=== PATIENT | male | born 1960 | race Caucasian/White ===

== ENCOUNTER 2017-12-15 00:56 | Inpatient (IN) | payer OTHER ==
[~2017-12-15] VITALS: Ht 172.7 cm; Wt 83.9 kg
[~2017-12-15 00:56] MED LIST: ATORVASTATIN CA20 M1 PO; LISINOPRIL-HCT1 EAC1 PO; MULTIVITAMINS1 EAC9 PO
--- NOTE | 2017-12-15 09:00 | Admission Core Measures ---
Acute Coronary Syndrome (CM) ACS Core Measures Acute Coronary Syndrome Diagnosis No Congestive Heart Failure (NEW) CHF Core Measures Congestive Heart Failure Diagnosis No Cerebrovascular Accident CVA Core Measures CVA/TIA Diagnosis No Venous Thromboembolism VTE Core Jairon (View Protocol) VTE Risk Factors Surgery No Mechanical VTE Prophylaxis d/t N/A MechProphylax Ordered No VTE Pharm Prophylaxis d/t NA PharmProphylax ordered Problem List As ranked by this Provider includes Assessment & Plan 1. Unilateral primary osteoarthritis, right hip HOME MEDS Home Med List Atorvastatin Calcium 20 MG TABLET 1 TAB PO DAILY CHOLESTEROL (Reported) Lisinopril/Hydrochlorothiazide (Lisinopril-Hctz 20-25 MG Tab) 20 MG-25 MG TABLET 1 TAB PO DAILY HTN (Reported) Multiple Vitamin (Multivitamins) 1 EACH TABLET 1 TAB PO DAILY SUPPLEMENT ( Reported)
--- NOTE | 2017-12-15 09:17 | Surg Short-stay <48hrs Dis Sum ---
Visit Information Visit Dates Admission Date: 12/15/17 Discharge Date: 12/15/17 Surgical Short Stay DC Summary Admission Diagnosis: Right hip osteoarthritis Final Diagnosis: JESSICA s/p R THR Procedure(s): Right total hip replacement 12/15/17 Summary/Significant Findings: Patient was admitted to the hospital for an elective right total hip replacement. Procedure was tolerated well and patient was transferred to a general surgical floor. Diet was advanced and tolerated. Physical therapy performed evaluation and treatment. At time of hospital discharge, vital signs were stable, neurovascular status was intact and pain was controlled with the use of oral pain medications. Condition at Discharge: Stable Discharge Disposition: home health services Discharge instructions provided to patient/family: Yes Post discharge follow-up plan: [address] Goss
[2017-12-15] MEDS ORDERED: PROTONIX20 M1 PO (09:19)
[2017-12-15] MEDS ORDERED: DILAUDID2 M1 PO (09:19)
[2017-12-15] MEDS ORDERED: INDOMETHACIN25 M1 PO (09:19)
[2017-12-15] MEDS ORDERED: ASPIRIN EC81 M1 PO (09:19)
[2017-12-15] MEDS ORDERED: COLACE100 M1 PO (09:19)
[2017-12-15] MEDS ORDERED: MS CONTIN15 M3 PO (09:19)
[2017-12-15] MEDS ORDERED: MIRALAX17 G1 PO (09:19)
--- NOTE | 2017-12-15 09:22 | Patient Discharge Instructions ---
Discharge Instructions General Discharge Information You were seen/treated for: Primary osteoarthritis, right hip You had these procedures: Right total hip replacement Watch for these problems: Increasing pain despite the use of pain medication Increasing redness, warmth or swelling Drainage of any type from incision Inability to bear weight on operative leg Persistent nausea and vomiting Fever greater than 101.5 degrees No bath, but you may shower: Yes Other wound care: Please keep wound clean and dry. No ointments or lotions of any type on or near incision. Your dressing will be changed by your nurse on the second day after your surgery. Daily dry dressing changes are recommended each day thereafter. Do not soak your wound- no tub baths/swimming. You may shower 48hr after surgery. Special Instructions: Aspirin: You are taking this medication to help prevent blood clot formation. Please take with food to protect your stomach lining. Please take as directed. Constipation: Pain medication can cause constipation. It is recommended that you take Colace and Miralax each day. Discontinue this medication if you develop loose stool or diarrhea. If you wish to continue this medication, it is available over the counter. If you are unable to move your bowels or unable to pass gas and are developing bloating, nausea, or vomiting as a result, please contact your doctor. Diet Continue normal diet: Yes Activity Full Activity/No Limits: No Activity Self Limited: Yes Activity Limited to: Weight bear as tolerated Other activity limits: Use rolling walker as needed Acute Coronary Syndrome Inclusion Criteria At DC or during hospital stay patient has or had the following: ACS DIAGNOSIS No Discharge Core Measures Meds if any: Prescribed or Continued at Discharge Meds if any: NOT Prescribed or Continued at Discharge Congestive Heart Failure Inclusion Criteria At DC or during hospital stay patient has or had the following: CHF DIAGNOSIS No Discharge Core Measures Meds if any: Prescribed or Continued at Discharge Meds if any: NOT Prescribed or Continued at Discharge Cerebrovascular accident Inclusion Criteria At DC or during hospital stay patient has or had the following: CVA/TIA Diagnosis No Discharge Core Measures Meds if any: Prescribed or Continued at Discharge Meds if any: NOT Prescribed or Continued at Discharge Venous thromboembolism Inclusion Criteria VTE Diagnosis No VTE Type NONE VTE Confirmed by (Test) NONE Discharge Core Measures - Per Current guidelines, there needs to be overlap - treatment for the first 5 days of Warfarin therapy. - If discharged on Warfarin prior to 5 days of - overlap therapy, the patient will need to be - assessed for post discharge needs including - *Post discharge parental anticoagulation - *Warfarin and/or parental anticoagulation education - *Follow up date to check INR post discharge At least 5 days overlap therapy as Inpatient No Meds if any: Prescribed or Continued at Discharge Note: Overlap Therapy is Warfarin and Anticoagulant Meds if any: NOT Prescribed or Continued at Discharge
--- NOTE | 2017-12-15 10:32 | PN- Orthopedic ---
See Addendum Subjective Subjective: Patient reports pain is well controlled in PACU. He reports slight numbness along the bottom of his feet. He is tolerating gingerale without nausea or vomiting. He denies voiding adn has not ambulated with PT yet. Objective Vital Signs and I&Os afebrile, VSS Physical Exam: Gen - resting comfortably in pacu in nad Cardiac - S1S2 noted, RRR Lungs - CTAB Abd - soft, nontender Ext - moves all extremities, right hip dressing c/d/i, compartment soft, motor and sensory intact, alps in place, no edema or calf tenderness Current Medications: Current Medications Sig/Scarlett Start time Last Medication Dose Route Stop Time Status Admin Acetaminophen 0 .STK-MED ONE 12/15 706 DC PO Acetaminophen 975 MG ONCE 12/15 0000 NR PO 12/15 2358 Cefazolin Sodium 2,000 MG ONCE 12/15 0000 NR IV 12/15 2358 Oxycodone HCl 0 .STK-MED ONE 12/15 706 DC PO Oxycodone HCl 10 MG ONCE 12/15 0000 NR PO 12/15 2358 Assessment/Plan Assessment/Plan 57 M s/p R THR, awaiting PT eval and postop void PT eval, WBAT Advance to regular diet Cont IVF Cont IV abx - ancef x2 Pain regimen prn Indocin 25 mg tid DVT ppx - alps, teds, asa 81 bid Anticipate d/c home w/ hhs pending voiding, PT clearance Core Measures Venous Thromboembolism VTE Risk Factors Surgery No Mechanical VTE Prophylaxis d/t N/A MechProphylax Ordered No VTE Pharm Prophylaxis d/t NA PharmProphylax ordered
[2017-12-15 11:05] VITALS: BP 120/80
--- NOTE | 2017-12-15 11:49 | RADIOLOGY REPORT ---
EXAMINATION: XR HIP, RIGHT CLINICAL INFORMATION: Status post right hip arthroplasty COMPARISON: None TECHNIQUE: Two views of the right hip. FINDINGS: Recent postoperative changes with air in the joint space and soft tissues. Right total hip arthroplasty. Intact hardware. Periprosthetic osseous structures are intact. IMPRESSION: Recent postoperative changes.
[2017-12-15 13:40] VITALS: BP 80/50
[2017-12-15 14:57] VITALS: BP 102/62
--- NOTE | 2017-12-15 16:18 | Operative Report ---
Operative/Inv Procedure Report Surgery Date: 12/15/17 Name of Procedure: Right total hip replacement Pre-Operative Diagnosis: Primary right hip DJD Post-Operative Diagnosis: Same Estimated Blood Loss: 300 Surgeon/Corrugator Supervisor: Wolfgang CAVANAUGH,Nasir Garcia Anesthesia: block Operative/Procedure Note Note: Description of Procedure: The patient was taken to the operating room and positively identified. After induction of spinal anesthesia and administration of appropriate pre-operative antibiotics, the patient was positioned supine on the operating room table and all bony prominences were well padded. After performing a surgical timeout, the right lower extremity was prepped and draped in the usual sterile fashion. A direct anterior approach was made to the right hip. The incision was carried sharply through superficial soft tissues to the level of the fascia. Meticulous hemostasis was maintained with Bovie electocautery. The fascia over the tensor fascia maria muscle was opened sharply and the interval between the TFL and the sartorius was entered bluntly taking care to stay lateral to the lateral femoral cutaneous nerve. Retractors were placed around the femoral neck and the pericapsular fat was identified. The ascending branches of the lateral femoral circumflex vessels were identified and carefully coagulated. The pericapsular fat and anterior capsule were then resected. A napkin ring osteotomy was performed and the femoral head was removed without difficulty. Attention was then turned to the acetabulum. After appropriate placement of retractors, the acetabulum was exposed. Soft tissue was cleaned from the acetabular margin and notch. Overhanging osteophytes were removed and the teardrop was exposed. The acetabulum was then sequentially reamed to accept a 60 mm Domenica Tritanium hemispherical solid shell. This was impacted into place in the appropriate position and fitted with a 36 mm Trident X3 zero degree polyethylene insert. Attention was then turned to the femur. After performing the appropriate ligament releases, the proximal femur was exposed. It was then sequentially broached to accept a size #4 [place] Accolade 2 stem. This was trialed for leg length and stability. The trial component was removed and the final component was impacted into place. The trunnion was carefully cleaned and fit with a 36 mm, -2.5 Biolox delta ceramic femoral head. The hip was reduced and put through a full range of motion and found to be stable. The articular space was then irrigated with sterile saline. The periarticular soft tissues were infilitrated with Marcaine. The fascial layer was closed with interrupted #1 vicryl suture and the skin was re-approximated with interrupted 2 -0 vicryl. The skin was closed with a running 3-0 V-Lock suture. Steri-strips and a sterile dressing were applied. The patient was awakened and taken to the recovery room in satisfactory condition.
== END 2017-12-15 17:20 | DRG 470 ==
LOC: SDA 00:56 → ENRESERV 09:51 → ENTRNSPT 10:47 → EDTRNSPTSTS 10:52 → EDTRNSPT 10:52 → 2NA 11:00 → CMPTRNSPT 11:17 → ENPENDDIS 11:31 → 2NA 17:20
PROC: 0SR904A Replacement of Right Hip Joint with Ceramic on Polyethylene Synthetic Substitute, Uncemented, Open Approach (ICD-10-PCS; principal; 2017-12-15)
DX: M16.11 Unilateral primary osteoarthritis, right hip (principal); I10 Essential (primary) hypertension; E78.5 Hyperlipidemia, unspecified
CPT/HCPCS: 2NASP; 73502-RT; 97116-GO; 97161-GP; 97530-GO; J0690; J0735; J2405; J7042